=== PATIENT | male | born 1970 | race American Indian/Alaskan Native ===

== ENCOUNTER 2017-04-16 13:26 | Outpatient (CLI) | payer OTHER ==
--- NOTE | 2017-04-16 14:17 | XRay Report ---
RIGHT HAND RADIOGRAPHS INDICATION: Sprain of unspecified part of wrist and hand. Somewhat ran into the patient. COMPARISON: None similar at this institution. FINDINGS: AP, lateral and oblique right hand radiographs, 5 images demonstrate a spiral fourth metacarpal fracture with maximum cortical offset of approximately 2 mm. Vertical fracture components along the shaft may also extend on either side. No definite joint involvement however. Diffuse overlying dorsal soft tissue swelling noted. Normal remainder exam. CONCLUSION: Right fourth metacarpal acute fracture with slight displacement and overlying soft tissue swelling, as described. I phoned the above results to Dr. Tony, 2 PM, 04/16/2017. Thank you for the opportunity to participate in this patient's care.
== END 2017-04-16 13:27 | disposition home or self-care (01) ==
LOC: XRAY 13:26
PROVIDERS: ATTEND Orthopaedic Surgery
DX: S62.304A Unspecified fracture of fourth metacarpal bone, right hand, initial encounter for closed fracture (principal); S63.91XA Sprain of unspecified part of right wrist and hand, initial encounter; X58.XXXA Exposure to other specified factors, initial encounter; Y93.89 Activity, other specified; Y92.89 Other specified places as the place of occurrence of the external cause; Y99.8 Other external cause status

== ENCOUNTER 2017-12-15 14:08 | Emergency (ER) | payer OTHER ==
[2017-12-15] MEDS ORDERED: LIDOCAINE VISCOUS 2% PO ONE (17:56)
[2017-12-15] MEDS ORDERED: MOTRIN PO ONE (17:56)
[2017-12-15] MEDS ORDERED: GUAIFENESIN DM SYRUP PO ONE (17:56)
--- NOTE | 2017-12-15 17:58 | Emergency Department Report ---
Chief Complaint: Upper Respiratory Infection Stated Complaint: FLU Time Seen by Provider: 12/15/17 17:42 - HPI History of Present Illness: The patient's 47-year-old male presents for evaluation of cough and flulike symptoms. The patient reports 1 week of intermittently productive cough, associated with chills, night sweats, and moderate in severity aching generalized myalgias. He also has experienced a stinging in quality shortness of throat for same duration, moderate in severity, exacerbated with swallowing. The patient denies headache, neck pain, paresthesias, focal motor weakness, blurry vision, ear pain, tinnitus, chest pain, hemoptysis, dyspnea, abdominal pain, confusion or altered mental status, or recent URI or diarrhea. - Exam Vital Signs: Vital Signs 12/15/17 15:14 Temperature 98.7 F Pulse Rate 56 L Respiratory 18 Rate Blood Pressure 131/83 O2 Sat by Pulse 98 Oximetry MSE screening note: Focused history and physical exam performed. Due to findings the following was ordered: ED Disposition for MSE Condition: Stable Referrals: PRIMARY CARE, [Primary Care Provider] - 3-5 Days
--- NOTE | 2017-12-15 20:31 | XRay Report ---
FINAL REPORT EXAM: XR CHEST 1V AP HISTORY: cough TECHNIQUE: Frontal chest x-ray was performed Comparison: None FINDINGS: Heart size is normal. Lungs are hyperlucent and hyperexpanded compatible with emphysema. There are no focal infiltrates. There is very mild coarsening of the interstitium. No effusions are identified. IMPRESSION: Emphysema. No acute cardiopulmonary disease.
--- NOTE | 2017-12-15 21:43 | Emergency Department Report ---
- General Chief Complaint: Upper Respiratory Infection Stated Complaint: FLU Time Seen by Provider: 12/15/17 17:42 Source: patient Mode of arrival: Ambulatory Limitations: No Limitations - History of Present Illness Initial Comments: The patient's 47-year-old male presents for evaluation of cough and flulike symptoms. The patient reports 1 week of intermittently productive cough, associated with chills, night sweats, and moderate in severity aching generalized myalgias. He also has experienced a stinging in quality shortness of throat for same duration, moderate in severity, exacerbated with swallowing. The patient denies headache, neck pain, paresthesias, focal motor weakness, blurry vision, ear pain, tinnitus, chest pain, hemoptysis, dyspnea, abdominal pain, confusion or altered mental status, or recent URI or diarrhea. Patient has no past medical history, currently takes only [id number] vitamins. And has no known drug allergies. Patient has no primary care provider MD Complaint: fever, cough, sore throat -: week(s) (more than a week) Severity scale (0 -10): 8 Quality: burning, sharp Improves With: nothing Worsens With: nothing Associated Symptoms: fever, chills, myalgias, cough. denies: headache, chest pain, shortness of breath, vomiting, diarrhea - Related Data Previous Rx's Medication Instructions Recorded Last Taken Type Benzonatate [Tessalon Perles] 100 mg PO Q8HR #15 capsule 12/15/17 Unknown Rx Ibuprofen 800 mg PO Q8H PRN #15 tablet 12/15/17 Unknown Rx Allergies Allergy/AdvReac Type Severity Reaction Status Date / Time No Known Allergies Allergy Unverified 04/16/17 13:27 ED Review of Systems ROS: Stated complaint: FLU Other details as noted in HPI Constitutional: chills, fever Eyes: denies: eye pain, eye discharge, vision change ENT: throat pain Respiratory: cough Cardiovascular: denies: chest pain, palpitations Endocrine: no symptoms reported Gastrointestinal: denies: abdominal pain, nausea, vomiting, diarrhea Genitourinary: denies: urgency, dysuria Musculoskeletal: denies: back pain, joint swelling, arthralgia Skin: denies: rash, lesions Neurological: denies: headache, weakness, paresthesias Psychiatric: denies: anxiety, depression Hematological/Lymphatic: denies: easy bleeding, easy bruising ED Past Medical Hx - Past Medical History Previous Medical History?: No - Surgical History Past Surgical History?: No - Social History Smoking Status: Never Smoker Substance Use Type: None - Medications Home Medications: Home Medications Medication Instructions Recorded Confirmed Last Taken Type Benzonatate [Tessalon Perles] 100 mg PO Q8HR #15 capsule 12/15/17 Unknown Rx Ibuprofen 800 mg PO Q8H PRN #15 tablet 12/15/17 Unknown Rx ED Physical Exam - General Limitations: No Limitations General appearance: alert, in no apparent distress - Head Head exam: Present: atraumatic, normocephalic - Eye Eye exam: Present: normal appearance - ENT ENT exam: Present: mucous membranes moist - Expanded ENT Exam Expanded Throat exam: Positive: tonsillar erythema - Neck Neck exam: Present: normal inspection - Respiratory Respiratory exam: Present: normal lung sounds bilaterally. Absent: respiratory distress - Cardiovascular Cardiovascular Exam: Present: regular rate, normal rhythm. Absent: systolic murmur, diastolic murmur, rubs, gallop - GI/Abdominal GI/Abdominal exam: Present: soft, normal bowel sounds - Rectal Rectal exam: Present: deferred - Extremities Exam Extremities exam: Present: normal inspection - Back Exam Back exam: Present: normal inspection - Neurological Exam Neurological exam: Present: alert, oriented X3 - Psychiatric Psychiatric exam: Present: normal affect, normal mood - Skin Skin exam: Present: warm, dry, intact, normal color. Absent: rash ED Course Vital Signs 12/15/17 15:14 Temperature 98.7 F Pulse Rate 56 L Respiratory 18 Rate Blood Pressure 131/83 O2 Sat by Pulse 98 Oximetry ED Medical Decision Making - Radiology Data Chest x-ray. Impression: No cardio pulmonary abnormalities - Medical Decision Making Patient has been evaluated by this provider as well as Dr. Burger. Patient was given viscous lidocaine ibuprofen and guaifenesin. Patient reports he feels much better. Discussed the patient that his chest x-ray was within normal limits. I discussed with patient that I would discharge him home on Tessalon Perles for cough and ibuprofen for pain. Discussed the patient that he needs to get a primary care provider. Patient verbalized understanding. Critical care attestation.: If time is entered above; I have spent that time in minutes in the direct care of this critically ill patient, excluding procedure time. ED Disposition Clinical Impression: Viral syndrome Disposition: DC-01 TO HOME OR SELFCARE Is pt being admited?: No Does the pt Need Aspirin: No Condition: Stable Instructions: Viral Syndrome (ED) Additional Instructions: Please take medication as prescribed. Please call [facility] customer service to obtain a primary care provider that is convenient for you. I recommended to follow-up within 3-5 days if symptoms persist or gets worse. Prescriptions: Benzonatate [Tessalon Perles] 100 mg PO Q8HR #15 capsule Ibuprofen 800 mg PO Q8H PRN #15 tablet PRN Reason: Pain Referrals: PRIMARY CARE, [Primary Care Provider] - 3-5 Days Forms: Work/School Release Form(ED)
[2017-12-16 07:54] VITALS: BP 121/80
== END 2017-12-15 21:50 | disposition home or self-care (01) ==
LOC: ED 14:08
DX: B34.9 Viral infection, unspecified (principal)
CPT/HCPCS: 71045; 99283